=== PATIENT | male | born 1975 | race Caucasian/White ===

== ENCOUNTER → 2017-07-27 | Outpatient (CLI) | payer BC ==
[2017-07-27 14:17] LABS: HEMOGLOBIN 14.1 g/dL (14.1-18.0); LYMPH # 2.3 K/mm3 (0.7-4.5); LYMPH % 34.7 % (10-50)
[2017-07-27 16:10] LABS: BUN 17 mg/dL (7-18)
[2017-07-27 16:15] LABS: GFR (ESTIMATED) 66 ML/MIN (>60)
[2017-07-28 06:37] LABS: Vitamin D, 25-Hydroxy 33.6 ng/mL (30.0-100.0)
== END ==
LOC: LAB 13:30
PROVIDERS: Internal Medicine Adolescent Medicine
DX: E78.5 Hyperlipidemia, unspecified (principal); M16.0 Bilateral primary osteoarthritis of hip; Z98.84 Bariatric surgery status